=== PATIENT | female | born 1975 | race Caucasian/White ===

== ENCOUNTER 2020-01-21 01:42 | Emergency (ER) | payer MEDICAID, OTHER ==
[~2020-01-21] VITALS: Ht 152.4 cm; Wt 69.0 kg
[2020-01-21] MEDS ORDERED: HYDROCODONE/ACETAMINOPHEN 5/325MG TABLET PO ONE (03:30)
[2020-01-21] MEDS ORDERED: ENALAPRIL 5MG TABLET PO SCH (03:30)
[2020-01-21] MEDS ORDERED: KETOROLAC 15MG/ML VIAL IM ONE (04:30)
[2020-01-21 06:59] VITALS: BP 239/107
== END 2020-01-21 07:02 | disposition home or self-care (01) ==
LOC: ER 01:42
DX: K08.89 Other specified disorders of teeth and supporting structures (principal); I10 Essential (primary) hypertension
CPT/HCPCS: 93005; 96372; 99283; J1885